=== PATIENT | female | born 1995 | race African-American/Black ===

== ENCOUNTER 2019-12-11 15:17 | Emergency (ER) | payer MEDICAID ==
[~2019-12-11] VITALS: Ht 157.5 cm; Wt 82.0 kg
[2019-12-11] MEDS ORDERED: IBUP-2271 PO (15:39)
[2019-12-11] MEDS ORDERED: IBUPROFEN 600 MG TABLET PO ONE (19:30)
[2019-12-11 19:49] VITALS: BP 128/89
== END 2019-12-11 19:51 | disposition home or self-care (01) ==
LOC: EMS 15:19
DX: M79.645 Pain in left finger(s) (principal)

== ENCOUNTER 2020-08-16 11:32 | Emergency (ER) | payer MEDICAID ==
[~2020-08-16] VITALS: Ht 157.5 cm; Wt 87.3 kg
[~2020-08-16 11:32] MED LIST: IBUP-2759 PO
[2020-08-16 13:00] VITALS: BP 119/82
== END 2020-08-16 13:29 | disposition home or self-care (01) ==
LOC: EMS 11:32
DX: S09.90XA Unspecified injury of head, initial encounter (principal); M79.605 Pain in left leg; M54.5 Low back pain; V49.9XXA Car occupant (driver) (passenger) injured in unspecified traffic accident, initial encounter; Y93.89 Activity, other specified; Y92.488 Other paved roadways as the place of occurrence of the external cause; Y99.8 Other external cause status
CPT/HCPCS: Z7502